=== PATIENT | female | born 1960 | race Caucasian/White ===

== ENCOUNTER 2017-07-19 08:00 | Emergency (ER) | payer BC ==
[2017-07-19 08:09] VITALS: BP 134/88; PULSE 71; RESP 18; TEMP 97.4
[2017-07-19] MEDS ORDERED: methylPREDNISolone SOD SUCCI 125 MG/2 ML VIAL IM ONE (08:48)
[2017-07-19] MEDS ORDERED: ORPHENADRINE 30 MG/ML 2 ML VIAL IM STA (08:48)
--- NOTE | 2017-07-19 08:51 | ED ---
Lower Extremity Injury HPI - General Chief Complaint: Extremity Injury, Lower Stated Complaint: left thigh pain Time Seen by Provider: 07/19/17 08:18 Source: patient, RN notes reviewed, old records reviewed Mode of arrival: ambulatory Limitations: no limitations - History of Present Illness Initial Comments: This patient is a 57-year-old female presents emergency Department chief complaint of left-sided upper thigh pain. She reports it's been going on for the past 4-5 days. She states that it started within her lower back and her hip and radiates down her the front of her thigh. She reports that she can feel muscle knot within her thigh. Worse with certain positions. She denies any lower extremity swelling or pain. Patient states that she's had a history of lower back changes but has not any recent x-rays. Denies any falls or trauma. - Related Data Home Medications Medication Instructions Recorded Confirmed Atorvastatin [Lipitor] 40 mg PO DAILY 07/19/17 07/19/17 Dextroamphetamine/Amphetamine 20 mg PO DAILY 07/19/17 07/19/17 [Adderall Xr] Escitalopram [Lexapro] 20 mg PO DAILY 07/19/17 07/19/17 Iron 27mg 27 mg PO DAILY 07/19/17 07/19/17 LORazepam [Ativan] 0.5 mg PO BID 07/19/17 07/19/17 Lisinopril [Prinivil] 10 mg PO DAILY 07/19/17 07/19/17 Omeprazole [PriLOSEC] 20 mg PO DAILY 07/19/17 07/19/17 Previous Rx's Medication Instructions Recorded Cyclobenzaprine [Flexeril] 10 mg PO TID #15 tab 07/19/17 traMADol HCL [Ultram] 50 mg PO Q4HR PRN #20 tab 07/19/17 Allergies Allergy/AdvReac Type Severity Reaction Status Date / Time No Known Allergies Allergy Verified 07/19/17 08:44 Review of Systems ROS Statement: Those systems with pertinent positive or pertinent negative responses have been documented in the HPI. ROS Other: All systems not noted in ROS Statement are negative. Past Medical History Past Medical History: No Reported History History of Any Multi-Drug Resistant Organisms: None Reported Past Surgical History: No Surgical Hx Reported Past Psychological History: ADD/ADHD Smoking Status: Never smoker Past Alcohol Use History: Rare Past Drug Use History: None Reported General Exam - General Exam Comments Initial Comments: 57-year-old male female. No distress. She does appear in mild to moderate pain. Limitations: no limitations General appearance: alert, in no apparent distress Head exam: Present: atraumatic, normocephalic, normal inspection Eye exam: Present: normal appearance, PERRL, EOMI. Absent: scleral icterus, conjunctival injection, periorbital swelling ENT exam: Present: normal exam, mucous membranes moist Neck exam: Present: normal inspection. Absent: tenderness, meningismus, lymphadenopathy Respiratory exam: Present: normal lung sounds bilaterally. Absent: respiratory distress, wheezes, rales, rhonchi, stridor Cardiovascular Exam: Present: regular rate, normal rhythm, normal heart sounds. Absent: systolic murmur, diastolic murmur, rubs, gallop, clicks Extremities exam: Present: normal inspection, full ROM, normal capillary refill , other (Patient has tenderness to palpation over the left anterior thigh. She is tender to palpation over the left sciatic notch as well.). Absent: tenderness, pedal edema, joint swelling, calf tenderness Back exam: Present: normal inspection, other (Patient reports pain whenever pressing on the left sciatic notch reading down her left anterior thigh.) Neurological exam: Present: alert, oriented X3, CN II-XII intact Psychiatric exam: Present: normal affect, normal mood Skin exam: Present: warm, dry, intact, normal color. Absent: rash Course Vital Signs 07/19/17 08:06 Temperature 97.4 F L Pulse Rate 71 Respiratory 18 Rate Blood Pressure 134/88 O2 Sat by Pulse 100 Oximetry Medical Decision Making - Medical Decision Making This patient is a 57-year-old female presents emergency Department chief complaint of left-sided upper thigh pain. She reports it's been going on for the past 4-5 days. She states that it started within her lower back and her hip and radiates down her the front of her thigh. At this time patient is tender over sciatica notch and reports pain is reporduced with palpation to lumbar soine down her left anterior thigh. No deformity, swelling or erythema to suggest DVT. Discussed lumbar spine imagining, and patient lumbar spine shows no acute abnormalities. Discussed paitent can be started on antiinflammatory medication as well as pain medication. Discussed follow up with PCP and orthopedic. All questions answered and return parameters discussed. - Radiology Data Radiology results: report reviewed No acute fracture dislocation and lumbar spine noted. Disposition Clinical Impression: Left thigh pain, Muscle spasm, Sciatica Disposition: HOME SELF-CARE Condition: Good Instructions: Sciatica (ED) Additional Instructions: Patient advised to follow-up with primary care provider. Return to emergency department if any alarming signs or symptoms occur. Take antibiotic try medicine and muscle relaxer medicine. Prescriptions: Cyclobenzaprine [Flexeril] 10 mg PO TID #15 tab traMADol HCL [Ultram] 50 mg PO Q4HR PRN #20 tab PRN Reason: Pain Referrals: Licha Shen MD [Primary Care Provider] - 1-2 days Time of Disposition: 09:49
--- NOTE | 2017-07-19 09:32 | XR ---
EXAMINATION TYPE: XR lumbar spine 2 or 3V DATE OF EXAM: 07/19/2017 CLINICAL HISTORY: Low back pain since last night. TECHNIQUE: Frontal and lateral images of the lumbar spine are obtained. COMPARISON: Lumbar spine x-ray January 14, 2011 FINDINGS: There are 5 lumbar type vertebral bodies identified. The lumbar spine shows satisfactory alignment without evidence of acute fracture or dislocation. Vertebral body heights remain within nor mal limits. There is moderate disc space narrowing and endplate sclerosis L5-S1 level redemonstrated. There is increasing spurring anterior L2-L3 level noted. The overlying soft tissue appears unremarka ble. IMPRESSION: No acute fracture or dislocation is seen in the lumbar spine.
== END 2017-07-19 10:31 | disposition home or self-care (01) ==
LOC: EC 08:00
DX: M62.838 Other muscle spasm (principal); M54.32 Sciatica, left side; F90.9 Attention-deficit hyperactivity disorder, unspecified type; Z79.899 Other long term (current) drug therapy
CPT/HCPCS: 72100; 99284; 96372 ×2; J2360; J2930